=== PATIENT | male | born 1990 | race Caucasian/White ===

== ENCOUNTER 2019-01-14 17:30 | Emergency (ER) | payer SELFPAY ==
[~2019-01-14] VITALS: Ht 172.7 cm; Wt 89.3 kg
[2019-01-14 17:34] VITALS: Ht 172.7 cm; Wt 89.3 kg
[2019-01-14] MEDS ORDERED: DIPHTH/TET/ACEL PERTUSS (ADULT) 0.5 ML VIAL IM* ONE (20:00)
[2019-01-14] MEDS ORDERED: ACETAMINOPHEN 325 MG TAB PO ONE (20:00)
[2019-01-14] MEDS ORDERED: IBUP-1542 PO (20:34)
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
[2019-01-14 20:56] VITALS: BP 118/76; PULSE 78; RESP 17
== END 2019-01-14 23:44 | disposition home or self-care (01) ==
LOC: FTE 17:30 → E/R 23:44
DX: T54.2X1A Toxic effect of corrosive acids and acid-like substances, accidental (unintentional), initial encounter (principal); Z23 Encounter for immunization
CPT/HCPCS: 80307; 90471; 90715